=== PATIENT | female | born 1970 | race Caucasian/White ===

== ENCOUNTER 2017-09-02 13:21 | Emergency (ER) | payer OTHER ==
[2017-09-02 14:03] LABS: ABS Basophils 0.2 10^3/ul (0-0.2); ABS Eosinophils 0.3 10^3/ul (0-0.6); ABS Lymphocytes 4.6 10^3/ul (1.0-4.8); ABS Monocytes 0.7 10^3/ul (0-0.8); ABS Neutrophils 6.5 10^3/ul (1.5-7.7); ABS Nucleated RBC 0 10^3/ul; Eosinophil % 2.6 % (0-6); Hematocrit 38 % (35-47); Hemoglobin 13.3 g/dl (12.0-16.0); Lymphocyte % 37.5 % (25-47); Mean Corpuscular HGB Conc 35 g/dl (31-36); Mean Corpuscular Hemoglobin 31 pg (27-31); Mean Corpuscular Volume 90 fL (80-97); Mean Platelet Volume 7 um3 (7.4-10.4); Nucleated Red Blood Cells % 0; Platelet Count 310 10^3/ul (150-450); Red Blood Count 4.25 10^6/ul (4.0-5.4); Red Cell Distribution Width 13 % (10.5-15); White Blood Count 12.3 10^3/ul (3.5-10.8)
--- NOTE | 2017-09-02 14:18 | RAD ---
HISTORY: Palpitation COMPARISONS: July 09, 2011 VIEWS: 1: frontal portable view of the chest at 1:55 PM FINDINGS: LINES AND TUBES: None. CARDIOMEDIASTINAL SILHOUETTE: The cardiomediastinal silhouette is normal for portable technique. PLEURA: The costophrenic angles are sharp. No pleural abnormalities are noted. LUNG PARENCHYMA: The lungs are clear. ABDOMEN: The upper abdomen is clear. There is no subphrenic gas. BONES AND SOFT TISSUES: No bone or soft tissue abnormalities are noted. IMPRESSION: NO ACTIVE CARDIOPULMONARY DISEASE.
[2017-09-02 14:19] LABS: EGFR Non-African American 72.1 (>60)
[2017-09-02 16:21] VITALS: BP 128/82
--- NOTE | 2017-09-03 08:22 | ED ---
Praveen Xie Angela, scribed for Gonzalez Sinha MD on 09/02/17 at 1346 . Palpitations / Dysrhythmia - HPI Summary HPI Summary: This pt is a 47 y/o female presenting to [facility] c/o intermittent palpitations since yesterday. Pt describes palpitations as heart fluttering. She reports she had some palpitations yesterday and this morning at 09:00 her palpitations became more constant. Pt states her episodes of palpitations last a few hours. She additionally notes dizziness and nausea. Denies chest pain, SOB. Pt had similar episodes in January 2017 that lasted 1-2 hours and another episode in April 2017. Pt followed up with a sports health club membership advisors in May 2017. Pt was placed on a 24 hour holter monitor and echo stress test, which all resulted negative. She was told her potassium and magnesium were low, probably secondary to hydrochlorothiazide. - History of Current Complaint Chief Complaint: EDDysrhythmPalp Hx Obtained From: Patient Onset/Duration: Lasting Hours, Still Present Timing: Intermittent Episodes Lasting: - couple of hours Severity Currently: Moderate Character: Fluttering Aggravating: Nothing Alleviating: Nothing Associated Signs & Symptoms: Dizzy, Nausea - Allergy/Home Medications Allergies/Adverse Reactions: Allergies Allergy/AdvReac Type Severity Reaction Status Date / Time MS Iodinated Diagnostic Allergy Rash Verified 06/09/16 10:54 Agents [Iodinated Diagnostic Agents] MS Naproxen [Naproxen] Allergy GI Upset Verified 06/09/16 10:54 MS Sulfa Drugs [Sulfa Drugs] Allergy Rash Verified 06/09/16 10:54 Home Medications: Home Medications Hydrochlorothiazide TAB* [Hydrodiuril TAB*] 25 mg PO DAILY 09/02/17 [History Confirmed 09/02/17] Lansoprazole CAP (NF) [Prevacid CAP (NF)] 15 mg PO DAILY 09/02/17 [History Confirmed 09/02/17] Propranolol LA CAP* [Inderal LA CAP*] 80 mg PO DAILY 09/02/17 [History Confirmed 09/02/17] Verapamil PM(NF) [Verelan PM(NF)] 300 mg PO DAILY 09/02/17 [History Confirmed ] traMADol TAB* [Ultram*] 50 mg PO Q6HR PRN 09/02/17 [History Confirmed 09/02/17] PMH/Surg Hx/FS Hx/Imm Hx Endocrine/Hematology History: Denies: Hx Diabetes, Hx Thyroid Disease Cardiovascular History: Reports: Hx Hypertension Denies: Hx Pacemaker/ICD Respiratory History: Denies: Hx Asthma, Hx Chronic Obstructive Pulmonary Disease (COPD) GI History: Denies: Hx Ulcer History: Denies: Hx Renal Disease Sensory History: Denies: Hx Hearing Aid Neurological History: Reports: Hx Migraine Psychiatric History: Denies: Hx Panic Disorder - Cancer History Hx Chemotherapy: No Hx Radiation Therapy: No - Surgical History Surgery Procedure, Year, and Place: appendectomy 2006 Infectious Disease History: No Infectious Disease History: Reports: Hx of Known/Suspected MRSA - thigh abcess x2 Denies: Hx Clostridium Difficile, Hx Hepatitis, Hx Human Immunodeficiency Virus (HIV), Hx Shingles, Hx Tuberculosis, History Other Infectious Disease, Traveled Outside the [place] in Last 30 Days - Family History Family History: no cardio vascular issues in family lineage - Social History Alcohol Use: Occasionally Alcohol Amount: socially - every other day to daily 1-2 glasses of wine/beer Substance Use Type: Reports: None Smoking Status (MU): Former Smoker Have You Smoked in the Last Year: No Review of Systems Negative: Fever, Chills Positive: Palpitations. Negative: Chest Pain Negative: Shortness Of Breath Positive: Nausea. Negative: Vomiting Neurological: Other - POS: idzziness All Other Systems Reviewed And Are Negative: Yes Physical Exam - Summary Physical Exam Summary: VITAL SIGNS: Reviewed. GENERAL: Patient is a well-developed and nourished female who is lying comfortable in the stretcher. Patient is not in any acute respiratory distress. HEAD AND FACE: No signs of trauma. No ecchymosis, hematomas or skull depressions. No sinus tenderness. EYES: PERRLA, EOMI x 2, No injected conjunctiva, no nystagmus. EARS: Hearing grossly intact. Ear canals and tympanic membranes are within normal limits. MOUTH: Oropharynx within normal limits. NECK: Supple, trachea is midline, no adenopathy, no JVD, no carotid bruit, no c- spine tenderness, neck with full ROM. CHEST: Symmetric, no tenderness at palpation LUNGS: Clear to auscultation bilaterally. No wheezing or crackles. CVS: Regular rate and rhythm, S1 and S2 present, no murmurs or gallops appreciated. ABDOMEN: Soft, non-tender. No signs of distention. No rebound no guarding, and no masses palpated. Bowel sounds are normal. EXTREMITIES: FROM in all major joints, no edema, no cyanosis or clubbing. NEURO: Alert and oriented x 3. No acute neurological deficits. Speech is normal and follows commands. SKIN: Dry and warm Triage Information Reviewed: Yes Vital Signs On Initial Exam: Initial Vitals Temp Pulse Resp BP Pulse Ox 97.5 F 54 18 131/86 97 09/02/17 13:23 09/02/17 13:23 09/02/17 13:23 09/02/17 13:23 09/02/17 13:23 Vital Signs Reviewed: Yes Diagnostics - Vital Signs Vital Signs Temp Pulse Resp BP Pulse Ox 09/02/17 13:23 97.5 F 54 18 131/86 97 - Laboratory Result Diagrams: 09/02/17 13:54 09/02/17 13:54 Lab Statement: Any lab studies that have been ordered have been reviewed, and results considered in the medical decision making process. - Radiology Chest XR Xray Interpretation: No Acute Changes - IMPRESSION: No active cardiopulmonary disease. Dr. Sinha has reviewed this radiology report. Radiology Interpretation Completed By: Radiologist - EKG 14:01 Cardiac Rate: Bradycardia EKG Rhythm: Sinus Bradycardia - at 53 bpm EKG Interpretation: No ST elevation. Normal axis. Course/Dx - Course Assessment/Plan: This pt is a 47 y/o female presenting to [facility] c/o intermittent palpitations since yesterday. Pt describes palpitations as heart fluttering. She reports she had some palpitations yesterday and this morning at 09:00 her palpitations became more constant. Pt states her episodes of palpitations last a few hours. She additionally notes dizziness and nausea. Denies chest pain, SOB. Pt had similar episodes in January 2017 that lasted 1-2 hours and another episode in April 2017. Pt followed up with a sports health club membership advisors in May 2017. Pt was placed on a 24 hour holter monitor and echo stress test , which all resulted negative. She was told her potassium and magnesium were low , probably secondary to hydrochlorothiazide. Test results without any significant abnormalities. Chest XR: No active cardiopulmonary disease. EKG shows no ST elevation. In the ED course the pt is asymptomatic. Therefore pt will be discharged to home with follow up from her PCP. I believe the pt would benefit from a holter monitor. She was instructed to return to the ED if symptoms worsen or if tachycardia reoccurs. Pt is hemodynamically stable, alert and oriented x3. - Diagnoses Provider Diagnoses: Atypical palpitations Discharge - Discharge Plan Condition: Stable Disposition: HOME Patient Education Materials: Heart Palpitations (ED) Referrals: Renetta Marquez MD [Primary Care Provider] - 3 Days Additional Instructions: Please follow up with your primary care provider. RETURN TO THE ED FOR ANY WORSENING SYMPTOMS. The documentation as recorded by the Praveen victor Angela accurately reflects the service I personally performed and the decisions made by me, Gonzalez Sinha MD.
== END 2017-09-02 16:20 | disposition home or self-care (01) ==
LOC: ED 13:21
DX: R00.2 Palpitations (principal); R42 Dizziness and giddiness; R11.0 Nausea; Z87.891 Personal history of nicotine dependence; R07.9 Chest pain, unspecified
CPT/HCPCS: 36415; 71045; 80053; 82550; 82553; 83605; 83735; 83880; 84436; 84443; 84484; 85025; 93005; 99283

== ENCOUNTER 2018-01-13 07:24 | Emergency (ER) | payer BC, OTHER ==
--- NOTE | 2018-01-13 07:38 | UC ---
Headache HPI - HPI Summary HPI Summary: Pt is a 47 y/o F c/o NÚÑEZ starting about 2 days ago and is located right behind the eyes. Pain onset a few days ago and is rated a 10/10, per triage. Assoc Sx: Nausea, dehydration. Denies: Rhinorrhea. Notes a Hx of migraines, however has not had a NÚÑEZ like this in 6-8 months. Took 4 doses of zoleg, 4 more doses and 2 doses of ralpax to no relief. Doctor would treat her and she would feel much better after after receiving. - History Of Current Complaint Stated Complaint: HEADACHE Time Seen by Provider: 01/13/18 07:30 Hx Obtained From: Patient Hx Last Menstrual Period: 04/23/16 Onset/Duration: Lasting Days, Still Present Initially Headache Was: "Worst Headache Ever" Currently Pain Is: Current Pain Scale(0-10)= Pain Intensity: 10 Pain Scale Used: 0-10 Numeric Timing: Constant - Allergies/Home Medications Allergies/Adverse Reactions: Allergies Allergy/AdvReac Type Severity Reaction Status Date / Time naproxen Allergy GI Upset Verified 01/13/18 07:51 Sulfa (Sulfonamide Allergy Rash Verified 01/13/18 07:51 Antibiotics) iodinated diagnostic agents Allergy Rash Uncoded 01/13/18 07:51 Home Medications: Home Medications Eletriptan HBr [Relpax] 40 mg PO SEE INSTRUCTIONS 01/13/18 [History Confirmed ] ZOLMitriptan [Zomig] 5 mg PO 01/13/18 [History] PMH/Surg Hx/FS Hx/Imm Hx Endocrine History: Other - neg: DM Other Endocrine History: . Cardiovascular History: Hypertension, Other - Neg: CAD Other Cardiovascular History: . - Surgical History Surgical History: Yes Surgery Procedure, Year, and Place: appendectomy 2006 - Family History Known Family History: Positive: None Family History: no cardio vascular issues in family lineage - Social History Occupation: Unemployed Lives: With Family Alcohol Use: Occasionally Alcohol Amount: socially - every other day to daily 1-2 glasses of wine/beer Substance Use Type: None Smoking Status (MU): Former Smoker Have You Smoked in the Last Year: No When Did the Patient Quit Smoking/Using Tobacco: 2004 - Immunization History Most Recent Influenza Vaccination: fall 2014 Most Recent Tetanus Shot: up to date Review of Systems Eyes: Photophobia ENT: Other - neg: rhinorrhea Neurological: Headache All Other Systems Reviewed And Are Negative: Yes Physical Exam - Summary Physical Exam Summary: General: well-appearing, mild pain distress Skin: warm, color reflects adequate perfusion, dry Head: normal Eyes: EOMI, KEIRA ENT: normal Neck: supple, nontender Respiratory: CTA, breath sounds present Cardiovascular: RRR Abdomen: soft, nontender Bowel: present Musculoskeletal: normal, strength/ROM intact Neurological: sensory/motor intact, A&O x3 Psychological: affect/mood appropriate Triage Information Reviewed: Yes Headache Course/Dx - Course Course Of Treatment: BP noted and advised to follow up with PCP. PATIENT REPORTS THIS IS TYPICAL FOR HER MIGRAINE HEADCHES. NO FEVER. HER NAPROXSEN ALLERGY IS STOMACH UPSET WHEN TAKING PO. NO PROBLEMS WITH TAKING PO IBUPROFEN. GIVEN TORADOL 60MG IM, BENADRYL 50MG IM AND ZOFRAN 4MG PO. RX ZOFRAN. F/U PMD ; RECHECK SOONER IF WORSE. - Differential Dx/Diagnosis Differential Diagnosis/HQI/PQRI: Other - HTN Provider Diagnoses: MIGRAINE HEADACHE Discharge - Sign-Out/Discharge Documenting (check all that apply): Patient Departure - Discharge Plan Condition: Stable Disposition: HOME Prescriptions: Ondansetron ODT TAB* [Zofran 4 MG Odt TAB*] 4 mg PO Q6H PRN #10 tab.odt PRN Reason: Nausea Patient Education Materials: Migraine Headache (ED) Forms: *Work Release Referrals: Renetta Marquez MD [Primary Care Provider] - Additional Instructions: FOLLOW UP WITH YOUR DOCTOR. GET RECHECKED FOR ANY WORSENING OF YOUR CONDITION; PAIN, FEVER, YOU FEEL ILL OR QUESTIONS OR CONCERNS. Your blood pressure was elevated during todays visit; please follow up with your primary care provider within a week for further evaluation. - Billing Disposition and Condition Condition: STABLE Disposition: Home
[2018-01-13 07:46] VITALS: BP 130/81
[2018-01-13] MEDS ORDERED: Ketorolac INJ* 60 MG/2 ML VIAL IM ONE (07:48)
[2018-01-13] MEDS ORDERED: diPHENhydraMINE IV* 50 MG/ML 1 ml VIAL (BENADRYL) IM ONE (07:49)
[2018-01-13] MEDS ORDERED: Ondansetron ODT TAB* 4 MG PO ONE (07:50)
== END 2018-01-13 08:21 | disposition home or self-care (01) ==
LOC: UCEAST 07:24
DX: G43.909 Migraine, unspecified, not intractable, without status migrainosus (principal); I10 Essential (primary) hypertension; Z88.6 Allergy status to analgesic agent; Z88.2 Allergy status to sulfonamides; Z91.041 Radiographic dye allergy status; Z87.891 Personal history of nicotine dependence
CPT/HCPCS: 96372; 99211; A9270-GY; G0463; J1200; J1885

== ENCOUNTER 2018-01-15 07:41 | Emergency (ER) | payer BC ==
[2018-01-15 07:59] VITALS: BP 135/86
[2018-01-15] MEDS ORDERED: Ketorolac INJ* 60 MG/2 ML VIAL IM ONE (08:56)
--- NOTE | 2018-01-15 09:11 | UC ---
Headache HPI - HPI Summary HPI Summary: PATIENT WITH HISTORY OF MIGRAINE HEADACHES PRESENTS WITH RECURRENT THROBBING FRONTAL HEADACHE, PHOTOPHOBIA, PHONOPHOBIA AND NAUSEA. FEELS LIKE HER MIGRAINE HEADACHES. WAS HERE 2 DAYS AGO WITH THE SAME AND TREATED WITH TORADOL AND BENADRYL. STATES SHE FELT BETTER INITIALLY BUT WHEN THE MEDICINE WORE OFF THE MIGRAINE RETURNED. WAS UNABLE TO GET A TIMELY APPOINTMENT WITH HER PCP. HAS SEEN NEUROLOGY IN THE PAST BUT NOT RECENTLY. IS ON PROPRANOLOL AND FOR OPTIMAL FOR PROPHYLAXIS. RELPAX WAS NOT HELPFUL. - History Of Current Complaint Chief Complaint: UCHeadache Stated Complaint: HEADACHE Time Seen by Provider: 01/15/18 08:26 Hx Obtained From: Patient Hx Last Menstrual Period: last week of november Onset/Duration: Gradual Onset, Lasting Days, Still Present Onset Of Symptoms: Gradual Initially Headache Was: Moderate Currently Pain Is: Severe Pain Intensity: 10 Pain Scale Used: 0-10 Numeric Timing: Constant Character: Dull, Throbbing, Migraine Location of Headache: Frontal Aggravating Factor(s): Bright Lights Allevating Factor(s): Medication Associated Signs And Symptoms: Positive: Nausea. Negative: Vomiting, Fever, Neck Pain, Neck Stiffness, Decreased LOC, Visual Changes - Allergies/Home Medications Allergies/Adverse Reactions: Allergies Allergy/AdvReac Type Severity Reaction Status Date / Time naproxen Allergy GI Upset Verified 01/15/18 07:52 Sulfa (Sulfonamide Allergy Rash Verified 01/15/18 07:52 Antibiotics) iodinated diagnostic agents Allergy Rash Uncoded 01/15/18 07:52 PMH/Surg Hx/FS Hx/Imm Hx - Additional Past Medical History Additional PMH: CHRONIC NECK PAIN Cardiovascular History: Hypertension Neurological History: Migraine - Surgical History Surgical History: Yes Surgery Procedure, Year, and Place: appendectomy 2005 - Family History Known Family History: Positive: None Negative: Hypertension Family History: no cardio vascular issues in family lineage - Social History Alcohol Use: Occasionally Alcohol Amount: socially - every other day to daily 1-2 glasses of wine/beer Substance Use Type: None Smoking Status (MU): Former Smoker Have You Smoked in the Last Year: No When Did the Patient Quit Smoking/Using Tobacco: 2004 - Immunization History Most Recent Influenza Vaccination: fall 2014 Most Recent Tetanus Shot: up to date Review of Systems Constitutional: Negative Eyes: Photophobia Respiratory: Negative Cardiovascular: Negative Gastrointestinal: Nausea Neurological: Headache All Other Systems Reviewed And Are Negative: Yes Physical Exam Triage Information Reviewed: Yes Appearance: Well-Nourished, Pain Distress - MODERATE Vital Signs: Initial Vital Signs Temp 99.1 F 01/15/18 07:53 Pulse 64 01/15/18 07:53 Resp 16 01/15/18 07:53 BP 135/86 01/15/18 07:53 Pulse Ox 99 01/15/18 07:53 Vital Signs Reviewed: Yes Eyes: Positive: Conjunctiva Clear, Other: - PERRL, EOMI ENT: Positive: Hearing grossly normal, Pharynx normal Neck: Positive: Supple, Nontender, No Lymphadenopathy Respiratory Exam: Normal Cardiovascular Exam: Normal Abdomen Description: Positive: Soft Musculoskeletal: Positive: No Edema Neurological: Positive: Alert Psychological: Positive: Age Appropriate Behavior Skin: Negative: rashes Headache Course/Dx - Course Course Of Treatment: PATIENT DECLINES IVF TODAY. SHE ALSO DECLINES CT SCAN TODAY. WILL GIVE ANOTHER DOSE OF TORADOL. ADDITIONAL RX FOR ZOFRAN PROVIDED. ADVISED TO TAKE 400 MG OF RIBOFLAVIN DAILY TO HELP WITH MIGRAINE PROPHYLAXIS IN ADDITION TO HER CURRENT MEDICATIONS. HAVE ALSO RECOMMENDED NEUROLOGY FOLLOW-UP FOR FURTHER EVALUATION OF HER RECURRENT/PERSISTENT MIGRAINE HEADACHE. PATIENT DOES HAVE TRAMADOL AT HOME WHICH SHE USES OCCASIONALLY FOR HER NECK PAIN. SHE STATES SHE DID NOT TAKE THIS FOR HER HEADACHE SHE ONLY TAKES THE MEDICATION FOR THE NECK PAIN FOR WHICH IT IS PRESCRIBED. ADVISED SHE COULD TRY 1-2 TIMES TO SEE IF IT BREAKS THE PAIN CYCLE BUT EMPHASIZED THAT SHE SHOULD NOT START RELYING ON NARCOTIC TYPE PAIN MEDICATIONS FOR HER MIGRAINE HEADACHES. - Differential Dx/Diagnosis Provider Diagnoses: MIGRAINE NÚÑEZ Discharge - Sign-Out/Discharge Documenting (check all that apply): Patient Departure - Discharge Plan Condition: Stable Disposition: HOME Prescriptions: Ondansetron ODT TAB* [Zofran Odt TAB*] 4 mg PO Q6H PRN #20 tab.odt PRN Reason: Nausea/Vomiting Patient Education Materials: Migraine Headache (ED) Forms: *Work Release Referrals: Renetta Marquez MD [Primary Care Provider] - 1 Week Hussein Fortune MD [Medical Doctor] - 1 Week Additional Instructions: YOU RECEIVED ANOTHER 60 MG TORADOL IM TODAY. OKAY TO USE YOUR TRAMADOL 1 OR 2 TIMES FOR THE HEADACHE TO SEE IF IT CAN BREAK THE PAIN CYCLE. I WOULD NOT START TAKING THIS MEDICATION REGULARLY FOR HEADACHE THOUGH. CONSIDER TAKING 400 MG OF RIBOFLAVIN DAILY IN ADDITION TO YOUR OTHER DAILY PROPHYLACTIC MEDICATIONS THERE IS SOME EVIDENCE THAT THIS MAY HELP PREVENT MIGRAINES. FOLLOW-UP WITH NEUROLOGY FOR FURTHER EVALUATION OF YOUR RECURRENT MIGRAINE HEADACHES. YOU MAY BENEFIT FROM A CT SCAN TO ENSURE NO OTHER UNDERLYING CAUSE FOR HEADACHE. - Billing Disposition and Condition Condition: STABLE Disposition: Home
== END 2018-01-15 09:19 | disposition home or self-care (01) ==
LOC: UCEAST 07:41
DX: G43.909 Migraine, unspecified, not intractable, without status migrainosus (principal); G89.29 Other chronic pain; M54.2 Cervicalgia; I10 Essential (primary) hypertension; Z88.6 Allergy status to analgesic agent; Z88.2 Allergy status to sulfonamides; Z91.041 Radiographic dye allergy status; Z87.891 Personal history of nicotine dependence
CPT/HCPCS: 96372; 99212; G0463; J1885

== ENCOUNTER 2019-10-14 22:26 | Emergency (ER) | payer OTHER ==
--- OUTSIDE RECORDS SUMMARY | 2019-10-14 22:39 | XMS REPORT | Continuity of Care Document ---
:1970 External Reference #:[id number] Author Name Renetta Marquez M.D. Address [address] [place] [address] Care Team Providers Name Role Phone Renetta Marquez M.D. - Family Medicine Care Team Information Security Risk Analyst Problems Active Problems Provider Date Essential hypertension Renetta Marquez M.D. Onset: 02/22/2016 Migraine with typical aura Renetta Marquez M.D. Onset: 02/22/2016 Brachial neuritis Renetta Marquez M.D. Onset: 02/18/2017 Obesity Renetta Marquez M.D. Onset: 02/18/2017 Chronic pain syndrome Renetta Marquez M.D. Onset: 09/27/2018 Neck pain Renetta Marquez M.D. Onset: 09/27/2018 Hypothyroidism Renetta Marquez M.D. Onset: 04/04/2019 Impaired fasting glycemia Renetta Marquez M.D. Onset: 04/04/2019 Leukocytosis Renetta Marquez M.D. Onset: 04/18/2019 Obstructive sleep apnea syndrome Renetta Marquez M.D. Onset: 07/20/2019 Cyst of right ovary Renetta Marquez M.D. Onset: 10/11/2019 Social History Type Date Description Comments Sex Unknown Tobacco Use Start: Unknown End: Former Cigarette Smoker Unknown ETOH Use Occasional Tobacco Use Start: Unknown End: Patient is a former smoker <1ppd, 16-30s Smoking Status Reviewed: 04/04/19 Patient is a former smoker <1ppd, 16-30s Exercise Type/Frequency Exercises sporadically Allergies, Adverse Reactions, Alerts Active Allergies Reaction Severity Comments Date Sulfa Antibiotics facial itching, hives 02/06/2016 Aleve vomiting 03/19/2016 Medications Active Medications SIG Qnty Indications Ordering Date Provider Valtrex 2000 mg by 14tabs Renetta Marquez, 10/11/2019 500mg Tablets mouth every 12 M.D. hours x1 day; start: brenda after symptom onset Naratriptan HCL 1 tab by mouth 14tabs Renetta [place], 04/12/2019 2.5mg Tablets at onset of M.D. migraine, repeat dose after 4hours if needed, MDD 2 Propranolol HCL 1 tab by mouth 14tabs Renetta [place], 04/04/2019 40mg Tablets every day x 1 M.D. week then 1/2 tab x 1 week then stop Levothyroxine Sodium 1 by mouth 90tabs Kim C. 09/30/2018 50mcg every day [facility] Tablets Ondansetron 1 tab by mouth 30tabs Renetta Marquez, 09/27/2018 4mg Tablets Dispers every 6 hours M.D. as needed Potassium Chloride Leelee ER take 1 tablet 90tabs Renetta Marquez, 04/03/2018 20Meq by mouth once M.D. Tablets ER daily Lansoprazole 1 by mouth [facility] Renetta Marquez, 10/03/[address] every day M.D. Verapamil HCL ER take 1 capsule [facility] Renetta Marquez, 10/03/2016 300mg Caps ER by mouth every M.D. 24HR evening Hydrochlorothiazide Take 1 Tablet 90tabs 0 Renetta Marquez, 02/06/2016 25mg Tablets By Mouth Once M.D. Daily Multivitamin Adult 1 by mouth Unknown Tablets daily. Tramadol HCL 1 by mouth 90tabs Renetta Marquez, 50mg Tablets every 8 hours M.D. as needed Cyclobenzaprine HCL take one Unknown 10mg Tablets tablet by mouth twice a day as needed pain Medications Administered in Office Medication SIG Qnty Indications Ordering Provider Date TB Intradermal Test Renetta Marquez M.D. 03/03/2017 Injection TB Intradermal Test Renetta Marquez M.D. 02/18/2017 Injection Immunizations CPT Code Status Date Vaccine Lot # [id number] Given 04/04/2019 Influenza Vac, Quadrivalent, Slit Virus, Im [id number] Given 03/31/2018 Influenza Vac, Quadrivalent, Slit Virus, Im [id number] Given 03/10/2017 MMR Virus Immunization [id number] Given 02/18/2017 Tdap Tetanus, W Pertussis [id number] Vital Signs Date Vital Result Comment 10/11/2019 9:05am BP Systolic 121 mmHg BP Diastolic 85 mmHg Heart Rate 72 /min Height 66 inches 5'6" measured 02/18/17 Weight 240.00 lb BMI (Body Mass Index) 38.7 kg/m2 04/04/2019 5:42pm BP Systolic 122 mmHg BP Diastolic 64 mmHg Heart Rate 68 /min Body Temperature 98.4 F Respiratory Rate 16 /min Height 66 inches 5'6" measured 02/18/17 Weight 262.00 lb BMI (Body Mass Index) 42.3 kg/m2 Results Test Acquired Date Facility Test Result H/L Range Note Comprehensive 04/14/2019 [facility]) Sodium 138 mEq/L 134-149 Metabolic Prof Potassium 3.3 mEq/L Low 3.6-5.5 1 Chloride 101 mEq/L 94-112 Carbon Dioxide 25 mEq/L 21-32 Glucose 125 mg/dL High 70-105 2 BUN 13 mg/dL 6-26 Creatinine 0.8 mg/dL 0.6-1.4 BUN/Creat Ratio 16.3 CALC 8.0-36.0 Calcium 8.8 mg/dL 8.6-10.2 Total Protein 6.9 g/dL 6.4-8.3 Albumin 4.5 g/dL 3.8-5.5 Globulin 2.4 g/dL 2.0-4.8 A/G Ratio 1.9 CALC 0.6-2.3 Alk. Phosphatase 65 U/L 30-110 Alt (SGPT) 20 U/L 7-35 Ast (Sgot) 18 U/L 5-34 Total Bilirubin 0.9 mg/dL 0.2-1.3 GFR Non- >60 ml/min/1.73m^ >=60 GFR >60 ml/min/1.73m^ >=60 Lipid Profile 04/14/2019 [facility]) Cholesterol 155 mg/dL 120- 200 Triglycerides 196 mg/dL 30-200 HDL Cholesterol 41 mg/dL 30-85 LDL (Calculated) 75 CALC 0-129 VLDL Cholesterol 39 mg/dL 0-50 HDL Risk Factor 3.8 CALC 0.0-4.4 Laboratory test finding 04/14/2019 [facility]ma) TSH 5.73 mIU/L 0.50-6.00 Free T4 1.10 ng/dL 0.75-1.54 CBC Electronic a 04/14/2019 [facility](a) WBC 11.0 x10^3/UL High 4.0-10.0 3 RBC 4.70 x10^6/UL 3.93-6.00 HGB 14.5 g/dL 12.0-17.0 HCT 42 % 35-50 MCV 89.1 fL 80.0-95.0 MCH 30.9 pg 25.6-32.2 MCHC 34.6 g/dL 32.2-36.0 RDW-CV 12.7 % 11.6-14.4 PLT 301 x10^3/UL 163-400 MPV 9.6 fL 9.4-12.4 Julissa# 6.63 x10^3/UL High 1.56-6.13 Lymph# 3.34 x10^3/UL 1.18-3.74 [place]# 0.64 x10^3/UL 0.24-0.82 Eos # 0.3 x10^3/UL 0.0-0.5 Baso # 0.05 x10^3/UL 0.01-0.08 Julissa% 60.4 % 34.0-70.0 Lymph % 30.4 % 20.0-52.0 [place]% 5.8 % 5.0-12.0 Eos% 2.7 % 0.7-7.0 Baso% 0.5 % 0.1-1.2 Ua - Non Micro (a) 04/14/2019 [facility] Appearance CLEAR (607)- - Color YELLOW Glucose, Urine (Fma/CMC/CTX) NEG Bilirubin NEG Ketones TRACE SP Grav 1.025 Blood NEG PH 6.0 Protein NEG Urobil 0.2 Nitrite NEG Leukocytes (a/CMC/[facility]) NEG Laboratory test 04/14/2019 [facility] Hemoglobin A1c 4.8 % % 4.1- 5.7 finding (607)- - (a) 1 RESULTS VERIFIED BY REPEAT ANALYSIS 2 RESULTS VERIFIED BY REPEAT ANALYSIS 3 consistent w/ previous results Procedures Date Code Description Status 05/04/2019 57830296 Mammogram Completed 07/26/2018 [id number] Colonoscopy Completed 04/02/2018 [id number] Mammogram Completed 12/31/2016 [id number] Mammogram Completed Medical Devices Description No Information Available Encounters Type Date Location Provider Dx Diagnosis Office Visit 10/11/2019 [facility] Renetta Marquez R73.01 Impaired fasting 9:00a M.D. glucose I10 Essential (primary) hypertension E03.9 Hypothyroidism, unspecified D72.829 Elevated white blood cell count, unspecified N83.201 Unspecified ovarian cyst, right side G47.33 Obstructive sleep apnea (adult) (pediatric) M54.2 Cervicalgia Assessments Date Code Description Provider 10/11/2019 R73.01 Impaired fasting glucose Renetta Marquez M.D. 10/11/2019 I10 Essential (primary) hypertension Renetta Marquez M.D. 10/11/2019 E03.9 Hypothyroidism, unspecified Renetta Marquez M.D. 10/11/2019 D72.829 Elevated white blood cell count, unspecified Renetta Marquez M.D. 10/11/2019 N83.201 Unspecified ovarian cyst, right side Renetta Marquez M.D. 10/11/2019 G47.33 Obstructive sleep apnea (adult) (pediatric) Renetta Marquez M.D. 10/11/2019 M54.2 Cervicalgia Renetta Marquez M.D. 04/14/2019 Z00.01 Encounter for general adult medical examination Renetta Marquez M.D. with abnormal findings 04/14/2019 R73.01 Impaired fasting glucose Renetta Marquez M.D. 04/14/2019 I10 Essential (primary) hypertension Renetta Marquez M.D. 04/14/2019 E03.9 Hypothyroidism, unspecified Renetta Marquez M.D. Plan of Treatment 10/11/2019 - Renetta Marquez M.D.R73.01 Impaired fasting glucoseNew Labs:Comp Metabolic-ALL [facility], Ordered: 10/11/19Lipid Panel-[facility], Ordered: 10/11/19Hemoglobin A1c ([facility]ma), Ordered: 10/11/19Microalb, Random ([facility]ma/ [facility]/CTX), Ordered: 10/11/19CBC Electronic-ALL [facility], Ordered: 10/11/19TSH (Fma/[facility]), Ordered: 10/11/19Free T4 (Fma/[facility]), Ordered: 10/11/19Ua - Micro ([facility]ma), Ordered: 10/11/19Comments:Sugar/glucose level was high. Consider meeting with a rn flight to help with food choices to preventdiabetes. Foods to avoid/limit include simple carbohydrates, which are processed, such as sugar, pasta, white bread, flour, and cookies, pastries, sweetened beverages and alcohol. Low carbohydrate diet, low glycemic index diet or the Mediterranean diet can help you reduce sugar levels. Routine cardiovascular exercise of at least 30 minutes a day is also recommended. Recommend rechecking your fasting( no food for 8 hours prior to test) sugar level in 3-6 months with lifestyle changes in effect. A fasting blood sugar level from 100 to 125 mg/dL is considered prediabetes. If it's 126 mg/dL or higher on two separate tests, you have diabetes. A1c> 6.5 is also diagnostic of diabetes.Follow up:1-2 mo fasting labs, 6 mo cpeI10 Essential (primary) hypertensionNew Labs:Comp Metabolic-ALL [facility], Ordered: 10/11/19Lipid Panel-[facility], Ordered: 10/11/19CB Electronic-ALL [facility], Ordered: 10/11/19Comments:The patient will continue to monitor blood pressure and let me know the blood pressure results if there are readings persistently above 140/90. Goal blood pressure is less than 130/80. Recommend low salt/cardiac diet such as the Mediterranean diet and routine exercise at least 30 minutes a day.E03.9 Hypothyroidism, unspecifiedNew Labs:TSH (Fma/[facility]), Ordered: Free T4 ([facility]ma/[facility]), Ordered: 10/11/19Comments:check labs, stable on lbwuwjdldjB78.829 Elevated white blood cell count, unspecifiedComments:is still high discussed siokrncmkbL75.201 Unspecified ovarian cyst, right sideComments: seeing gynG47.33 Obstructive sleep apnea (adult) (pediatric)Comments:wears CPAP nightly with improvement of nukbvnwcA91.2 CervicalgiaComments:on tramadol and flexerilAllNew Medication:Valtrex 500 mg - 2000 mg by mouth every 12 hours x1 day; start: brenda after symptom onsetComments:Medication Management Patient Understands medications she's taking? Yes No Are there Barriers to Adherence? Yes No Has the patient been asked about herbal supplements and therapies, and OTC meds? Yes No Functional Status Description No Information Available Mental Status Description No Information Available Referrals Description No Information Available
--- OUTSIDE RECORDS SUMMARY | 2019-10-14 22:39 | XMS REPORT | Continuity of Care Document ---
:1970 External Reference #:[id number] Author Name Basia Luna NP (transmitted by agent of provider Rosemarie Triplett) Address [address], [address] [place] [address] Care Team Providers Name Role Phone Renetta Marquez MD - Family Care Team Information Manager Cardiac [phone] Medicine Problems Active Problems Provider Date Essential hypertension Gonzalez Law M.D. Onset: 12/23/2015 Neck pain Hussein Escalera M.D. Onset: 05/19/2016 Degeneration of cervical intervertebral Hussein Escalera M.D. Onset: 07/02/2016 disc Displacement of cervical intervertebral Hussein Escalera M.D. Onset: 08/11/2016 disc History of polyp of colon Jayda Solorzano NP Onset: 06/03/2018 Social History Type Date Description Comments Sex Unknown Cigarette Use Quit 15 Years Ago ETOH Use Drinks Alcoholic Beverages Occasionally Tobacco Use Start: Unknown End: Patient is a former smoker Unknown Recreational Drug Use Denies Drug Use Smoking Status Reviewed: 09/08/19 Patient is a former smoker Exercise Type/Frequency Does not exercise Allergies, Adverse Reactions, Alerts Active Allergies Reaction Severity Comments Date Sulfa Antibiotics 12/10/2015 Chloraprep 09/08/2019 Medications Active Medications SIG Qnty Indications Ordering Date Provider Tramadol HCL 1 by mouth 90tabs M50.30 Hussein Escalera 07/02/2016 50mg Tablets every 6 hours M.D. as needed pain Cyclobenzaprine HCL 1 by mouth 60tabs Hussein Escalera 05/19/2016 10mg Tablets twice a day M.D. as needed spasm Prevacid 1 tab by 90caps Gonzalez Gray 15mg Capsules DR kristin Law M.D. Verapamil HCL ER one by mouth 90capelaine Roth E. 300mg Caps ER 24HR every day Sharmin Law Valtrex 1 by mouth Unknown 500mg Tablets twice aday Daily Vitamin Unknown Tablets Promethazine HCL one tablet Unknown 25mg Tablets every 8 hours as needed for nausea Hydrochlorothiazide 1 by mouth Unknown 25mg Tablets every day Potassium Chloride ER 2 by mouth Unknown 10Meq every day Capsules ER Levothyroxine Sodium 1 by mouth Unknown 50mcg Tablets every day Immunizations Description No Information Available Vital Signs Date Vital Result Comment 09/08/2019 1:54pm Height 66 inches 5'6" Weight 248.00 lb Heart Rate 96 /min BP Systolic Sitting 140 mmHg BP Diastolic Sitting 98 mmHg O2 % BldC Oximetry 97 % BMI (Body Mass Index) 40.0 kg/m2 07/20/2019 8:46am Height 66 inches 5'6" Weight 246.00 lb Heart Rate 84 /min BP Systolic 124 mmHg BP Diastolic 74 mmHg O2 % BldC Oximetry 98 % BMI (Body Mass Index) 39.7 kg/m2 Results Description No Information Available Procedures Date Code Description Status 07/01/2019 82085 Polysomnography Sleep Staging 4+ Parameters Completed 05/04/2019 [id number] Mammogram Completed 07/26/2018 [id number] Colonoscopy Completed 12/31/2016 [id number] Mammogram Completed 06/27/2011 [id number] Mammogram Completed 07/28/2005 [id number] Colonoscopy Completed Medical Devices Description No Information Available Encounters Type Date Location Provider Dx Diagnosis Office Visit 09/08/2019 Pulmonology Becky Flor G47.33 Obstructive sleep 2:00p [facility] apnea (adult) [facility] (pediatric) Office Visit 07/20/2019 Pulmonology Becky Flor G47.33 Obstructive sleep 9:00a [facility] apnea (adult) [facility] (pediatric) R53.83 Other fatigue Office Visit 06/08/2019 8:00a [facility] Rosalinda Gage, R06.83 [facility] Techn[facility] R53.83 Other fatigue Office Visit 05/27/2019 11:30a [facility] Emmanuel Rios, N83.201 [facility] ovarian cyst, right side D25.1 Intramural leiomyoma of uterus Z80.41 Family history of malignant neoplasm of ovary Assessments Date Code Description Provider 09/08/2019 G47.33 Obstructive sleep apnea (adult) (pediatric) Basia Luna NP 07/20/2019 G47.33 Obstructive sleep apnea (adult) (pediatric) Basia Luna NP 07/20/2019 R53.83 Other fatigue Basia Luna NP 07/01/2019 G47.33 Obstructive sleep apnea (adult) (pediatric) Rosalinda Gage MD 06/08/2019 R06.83 Snoring Rosalinda Gage MD 06/08/2019 R53.83 Other fatigue Rosalinda Gage MD 05/27/2019 N83.201 Unspecified ovarian cyst, right side Emmanuel Rios MD 05/27/2019 D25.1 Intramural leiomyoma of uterus Emmanuel Rios MD 05/27/2019 Z80.41 Family history of malignant neoplasm of Dvaretha Rios MD ovary Plan of Treatment Future Appointment(s):03/09/2020 3:00 pm - Basia Luna NP at [facility]12/12/2019 4:00 pm - Emmanuel Rios MD at [facility]09/08/2019 - Basia Luna NPG47.33 Obstructive sleep apnea (adult) (pediatric)Follow up:6 monthsRecommendations: Keep up the good work with your CPAP! If you have difficulty with your equipment, or need to replace your mask or hoses, please contact your homecare agency, [facility] . If you have any further questions, please call the [facility] at [phone] If you have anysleepiness while driving you MUST avoid operating a vehicle or machinery. If you feel tired while driving pull over machine operator and take a nap or switch drivers. If you know you are sleepy and need to go somewhere, arrange for a ride or use public transportation. It is very important to not risk your safety or the safety of others. Functional Status Description No Information Available Mental Status Description No Information Available Referrals Description No Information Available
--- OUTSIDE RECORDS SUMMARY | 2019-10-14 22:39 | XMS REPORT | Continuity of Care Document ---
:1970 External Reference #:[id number] Author Name Basia Luna NP Address [address], [address] [place] [address] Care Team Providers Name Role Phone Renetta Marquez MD - Family Care Team Information Remittance Clerk [phone] Medicine Problems Active Problems Provider Date Essential [...] spasm Prevacid 1 tab by 90caps Gonzalez EErnie 15mg Capsules DR kristin Law M.D. Verapamil HCL ER one by mouth 90caps Gonzalez EErnie 300mg Caps ER 24HR every day Sharmin [...] Available Procedures Date Code Description Status 07/01/2019 74481 Polysomnography Sleep Staging 4+ Parameters Completed 05/04/2019 [id number] Mammogram Completed 07/26/2018 [id number] Colonoscopy Completed 12/31/2016 [id number] Mammogram Completed 06/27/2011 [id number] Mammogram Completed 07/28/2005 [id number] Colonoscopy Completed Medical Devices Description No Information Available Encounters Type Date Location Provider Dx Diagnosis Office Visit 09/08/2019 Pulmonology Becky Flor G47.33 Obstructive sleep 2:00p [facility] apnea (adult) [facility] (pediatric) Office Visit 07/20/2019 Pulmonology Becky Folr G47.33 Obstructive sleep 9:00a [facility] apnea (adult) [facility] (pediatric) R53.83 Other fatigue Office Visit 06/08/2019 8:00a [facility] Rosalinda Gage, R06.83 [facility] JOHN R53.83 Other fatigue Office Visit 05/27/2019 11:30a [facility], N83.201 [facility] ovarian cyst, right side D25.1 Intramural leiomyoma [...] MD 05/27/2019 D25.1 Intramural leiomyoma of uterus Emmaunel Rios MD 05/27/2019 Z80.41 Family history of malignant neoplasm of Emmanuel Rios MD ovary Plan of Treatment Future Appointment(s):12/12/2019 4:00 pm - Emmanuel [facility] at [facility]09/08/2019 - Basia Luna NPG47.33 Obstructive sleep apnea ( adult) (pediatric)New Orders:[facility], Ordered: 09/08/19Follow up:6 monthsRecommendations:Keep up the good work with your CPAP! If you have difficulty with your equipment, or need to replace your mask or hoses, please contact your homecare agency, [facility] . If you have any further questions, please call the Sleep Disorder Center at [phone] If you have anysleepiness while driving you MUST avoid operating a vehicle or machinery. If you feel tired while driving ladle puller and take a nap or switch drivers. [...]
--- OUTSIDE RECORDS SUMMARY | 2019-10-14 22:39 | XMS REPORT | Continuity of Care Document ---
:1970 External Reference #:[id number] Author Name Renetta Marquez M.D. (transmitted by agent of provider Josephine Muñoz) Address [address] [place] [address] Care Team Providers Name Role Phone Renetta Marquez M.D. - Family Medicine Care Team Information Optical Engineering Manager Problems Active Problems Provider Date Essential hypertension [...] HCL 1 tab by mouth 14tabs Renetta Marquez, 04/12/2019 2.5mg Tablets at onset of M.D. migraine, repeat dose after 4hours if needed, MDD 2 Propranolol HCL 1 tab by mouth 14tabs Renetta Marquez, 04/04/2019 40mg Tablets every day x 1 M.D. week then 1/2 tab x 1 week then stop Levothyroxine Sodium 1 by mouth 90tabs Kim Jenkins 09/30/2018 50mcg every day [facility] Tablets Ondansetron 1 tab by mouth 30tabs Renetta Marquez, 09/27/2018 4mg Tablets Dispers every 6 hours M.D. as needed Potassium Chloride Leelee ER take 1 tablet 90tabs Renetta Marquez, 04/03/2018 20Meq by mouth once M.D. Tablets ER daily Lansoprazole 1 by [facility] Renetta Marquez, 10/03/[address] every day M.D. Verapamil HCL ER take 1 capsule [facility] Renetta Marquez, 10/03/2016 300mg Caps ER by mouth every M.D. 24HR evening Hydrochlorothiazide Take 1 Tablet 90tabs I10 Renetta Marquez, 02/06/2016 25mg Tablets By Mouth [...] CPT Code Status Date Vaccine Lot # [id number] Given 04/04/2019 Influenza Vac, Quadrivalent, Slit Virus, Im [id number] Given 03/31/2018 Influenza Vac, Quadrivalent, Slit Virus, Im [id number] Given 03/10/2017 MMR Virus Immunization [id number] Given 02/18/2017 Tdap Tetanus, W Pertussis [id number] [...] Result H/L Range Note Comprehensive 04/14/2019 [facility](fma) Sodium 138 mEq/L 134-149 Metabolic Prof Potassium [...] GFR >60 ml/min/1.73m^ >=60 Lipid Profile 04/14/2019 [facility](fma) Cholesterol 155 mg/dL 120- 200 Triglycerides 196 mg/dL 30-200 HDL Cholesterol 41 mg/dL 30-85 LDL (Calculated) 75 CALC 0-129 VLDL Cholesterol 39 mg/dL 0-50 HDL Risk Factor 3.8 CALC 0.0-4.4 Laboratory test finding 04/14/2019 [facility](fma) TSH 5.73 mIU/L 0.50-6.00 Free T4 1.10 ng/dL 0.75-1.54 CBC Electronic a 04/14/2019 [facility]) WBC 11.0 x10^3/UL High 4.0-10.0 3 RBC 4.70 x10^6/UL 3.93-6.00 HGB 14.5 g/dL 12.0-17.0 HCT 42 % 35-50 MCV 89.1 fL 80.0-95.0 MCH 30.9 pg 25.6-32.2 MCHC 34.6 g/dL 32.2-36.0 RDW-CV 12.7 % 11.6-14.4 PLT 301 x10^3/UL 163-400 MPV 9.6 fL 9.4-12.4 Julissa# 6.63 x10^3/UL High 1.56-6.13 Lymph# 3.34 x10^3/UL 1.18-3.74 [place]# 0.64 x10^3/UL 0.24-0.82 Eos # 0.3 x10^3/UL 0.0-0.5 Baso # 0.05 x10^3/UL 0.01-0.08 Julissa% 60.4 % 34.0-70.0 Lymph % 30.4 % 20.0-52.0 [place]% 5.8 % 5.0-12.0 Eos% 2.7 % 0.7-7.0 Baso% 0.5 % 0.1-1.2 Ua - Non Micro ([facility]) 04/14/2019 [facility] Appearance CLEAR (607)- - Color YELLOW Glucose, Urine (Fma/[facility]/CTX) NEG Bilirubin NEG Ketones TRACE SP Grav 1.025 Blood NEG PH 6.0 Protein NEG Urobil 0.2 Nitrite NEG Leukocytes (a/[facility]) NEG Laboratory test 04/14/2019 [facility] Hemoglobin A1c 4.8 % % 4.1- 5.7 finding (607)- - (a) 1 RESULTS VERIFIED BY REPEAT ANALYSIS 2 RESULTS VERIFIED BY REPEAT ANALYSIS 3 consistent w/ previous results Procedures Date Code Description Status 05/04/2019 [id number] Mammogram Completed 07/26/2018 [id number] Colonoscopy Completed 04/02/2018 [id number] Mammogram Completed 12/31/2016 [id number] Mammogram Completed Medical Devices Description No Information Available Encounters Type Date Location Provider Dx Diagnosis Office Visit 10/11[facility] Renetta Marquez R73.01 Impaired fasting 9:00a [...] level was high. Consider meeting with a electric drill operator to help with food choices to preventdiabetes. [...] T4 ([facility]), Ordered: 10/11/19Comments:check labs, stable on faldyiudufE97.829 Elevated white blood cell count, unspecifiedComments:is still high discussed usjwxxcfkfS45.201 Unspecified ovarian cyst, right sideComments: seeing gynG47.33 Obstructive sleep apnea (adult) (pediatric)Comments:wears CPAP nightly with improvement of llsvhkcuE04.2 CervicalgiaComments:on tramadol and flexerilAllNew Medication:Valtrex 500 mg [...]
--- NOTE | 2019-10-14 23:37 | ED ---
GI/ HPI - HPI Summary HPI Summary: Patient complains of no bowel movement for one week with some mild diffuse abdominal discomfort. Patient states she has been active, also taking tramadol for migraine headache. Some associated nausea. States she has taken suppositories 5 with no relief. Denies fever, cough, sore throat, CP, SOB, V/D , change in urine. Medical history is migraines, HTN. - History of Current Complaint Chief Complaint: EDConstipation Time Seen by Provider: 10/14/19 23:07 Stated Complaint: GENERAL PER PT Hx Obtained From: Patient Hx Last Menstrual Period: last week of november Onset/Duration: Started Days Ago Timing: Constant Severity: Mild Current Severity: Mild Pain Intensity: 1 Location of Pain: Diffuse Pain Characteristics: Dull Associated Signs and Symptoms: Positive: Nausea - Allergy/Home Medications Allergies/Adverse Reactions: Allergies Allergy/AdvReac Type Severity Reaction Status Date / Time chlorhexidine Allergy Rash Verified 10/14/19 22:33 naproxen Allergy GI Upset Verified 10/14/19 22:33 Sulfa (Sulfonamide Allergy Rash Verified 10/14/19 22:33 Antibiotics) iodinated diagnostic agents Allergy Rash Uncoded 10/14/19 22:33 Home Medications: Home Medications Ibuprofen TAB* [Motrin TAB* 800 MG] 800 mg PO Q8H PRN #40 tab 05/06/16 [Rx Confirmed 07/26/18] Hydrochlorothiazide TAB* [Hydrodiuril TAB*] 25 mg PO DAILY 09/02/17 [History Confirmed 07/14/18] Lansoprazole CAP (NF) [Prevacid CAP (NF)] 15 mg PO DAILY 09/02/17 [History Confirmed 07/14/18] Propranolol LA CAP* [Inderal LA CAP*] 80 mg PO DAILY 09/02/17 [History Confirmed 07/14/18] Verapamil PM(NF) [Verelan PM(NF)] 300 mg PO DAILY 09/02/17 [History Confirmed ] traMADol TAB* [Ultram*] 50 mg PO Q6HR PRN 09/02/17 [History Confirmed 07/14/18] Eletriptan HBr [Relpax] 40 mg PO .AT ONSET NÚÑEZ PRN MDD may repeat x1 after 2hrs 01/13/18 [History Confirmed 07/14/18] ZOLMitriptan [Zomig] 5 mg PO .AT ONSET OF NÚÑEZ PRN MDD 2, no more than 2x/wk 01/13 [History Confirmed 07/14/18] Cyclobenzaprine TAB* [Flexeril 10 MG TAB*] 10 mg PO BID PRN 06/04/18 [History Confirmed 07/14/18] Multivitamins/Minerals TAB* [Theragran/minerals TAB*] 1 tab PO DAILY 06/04/18 [ History Confirmed 07/14/18] ValACYclovir (*) [Valtrex 500 mg (*)] 500 mg PO BID PRN 06/04/18 [History Confirmed 07/14/18] Ondansetron TAB* [Zofran 4 MG Tab*] 4 mg PO Q6H PRN 07/26/18 [History Confirmed 07/26/18] PMH/Surg Hx/FS Hx/Imm Hx Endocrine/Hematology History: Denies: Hx Diabetes, Hx Thyroid Disease Cardiovascular History: Reports: Hx Hypertension Denies: Hx Pacemaker/ICD Respiratory History: Denies: Hx Asthma, Hx Chronic Obstructive Pulmonary Disease (COPD) GI History: Denies: Hx Ulcer History: Denies: Hx Renal Disease Sensory History: Denies: Hx Hearing Aid Neurological History: Reports: Hx Migraine Psychiatric History: Denies: Hx Panic Disorder - Cancer History Hx Chemotherapy: No Hx Radiation Therapy: No - Surgical History Surgery Procedure, Year, and Place: appendectomy 2005 Infectious Disease History: Yes Infectious Disease History: Reports: Hx of Known/Suspected MRSA - thigh abcess x2 Denies: Hx Clostridium Difficile, Hx Hepatitis, Hx Human Immunodeficiency Virus (HIV), Hx Shingles, Hx Tuberculosis, History Other Infectious Disease, Traveled Outside the [place] in Last 30 Days - Family History Known Family History: Positive: None Negative: Hypertension Family History: no cardio vascular issues in family lineage - Social History Alcohol Use: Occasionally Alcohol Amount: socially - every other day to daily 1-2 glasses of wine/beer Substance Use Type: Reports: None Smoking Status (MU): Former Smoker Have You Smoked in the Last Year: No Review of Systems Constitutional: Negative Eyes: Negative ENT: Negative Cardiovascular: Negative Respiratory: Negative Positive: Nausea Genitourinary: Negative Musculoskeletal: Negative Skin: Negative Neurological/Mental Status: Negative Psychological: Normal All Other Systems Reviewed And Are Negative: Yes Physical Exam Triage Information Reviewed: Yes Vital Signs On Initial Exam: Initial Vitals Temp Pulse Resp BP Pulse Ox 98.2 F 115 18 151/106 98 10/14/19 22:28 10/14/19 22:28 10/14/19 22:28 10/14/19 22:28 10/14/19 22:28 Vital Signs Reviewed: Yes Appearance: Positive: Well-Appearing Skin: Positive: Warm Head/Face: Positive: Normal Head/Face Inspection Eyes: Positive: Normal Neck: Positive: Supple Respiratory/Lung Sounds: Positive: Clear to Auscultation Cardiovascular: Positive: Normal Abdomen Description: Positive: Other: - Mildly tender diffusely Musculoskeletal: Positive: Normal Neurological: Positive: Normal Psychiatric: Positive: Normal AVPU Assessment: Alert - Pamela Coma Scale Best Eye Response: 4 - Spontaneous Best Motor Response: 6 - Obeys Commands Best Verbal Response: 5 - Oriented Coma Scale Total: 15 Procedures - Sedation Patient Received Moderate/Deep Sedation with Procedure: No Diagnostics - Vital Signs Vital Signs Temp Pulse Resp BP Pulse Ox 10/14/19 22:28 98.2 F 115 18 151/106 98 - Laboratory Lab Statement: Any lab studies that have been ordered have been reviewed, and results considered in the medical decision making process. GIGU Course/Dx - Course Course Of Treatment: Patient complains of no bowel movement for one week with some mild diffuse abdominal discomfort. Patient states she has been active, also taking tramadol for migraine headache. Some associated nausea. States she has taken suppositories 5 with no relief. Denies fever, cough, sore throat , CP, SOB, V/D, change in urine. Medical history is migraines, HTN. Vital signs within normal limits. Patient produced large amount of stool after soapsuds enema. - Diagnoses Provider Diagnoses: Constipation - Critical Care Time Critical Care Statement: Critical care time is provided exclusive of any time spent performing procedures. Discharge ED - Sign-Out/Discharge Documenting (check all that apply): Patient Departure - Discharge Plan Condition: Stable Disposition: HOME Patient Education Materials: Constipation (ED) Referrals: Renetta Marquez MD [Primary Care Provider] - Additional Instructions: Try magnesium citrate 150 mL's if still unable to produce stool. Take another 150 mL's if that does not work. If unable to produce stool after 300ml magnesium citrate return to the ED. Magnesium citrate available over-the- counter at the pharmacy. Return to the ED for any new or worsening symptoms. - Billing Disposition and Condition Condition: STABLE Disposition: Home
[2019-10-15 01:47] LABS: Urine Appearance Clear; Urine Bilirubin Negative (Negative); Urine Blood Negative (Negative); Urine Color Straw; Urine Glucose Negative (Negative); Urine Ketones Negative (Negative); Urine Nitrite Negative (Negative); Urine Protein Negative (Negative); Urine Specific Gravity 1.002 (1.010-1.030); Urine Urobilinogen Negative (Negative)
[2019-10-15 01:59] VITALS: BP 142/90
== END 2019-10-15 01:58 | disposition home or self-care (01) ==
LOC: ED 22:26
DX: K59.00 Constipation, unspecified (principal); R11.0 Nausea; I10 Essential (primary) hypertension; Z87.891 Personal history of nicotine dependence; Z86.14 Personal history of Methicillin resistant Staphylococcus aureus infection; Z79.899 Other long term (current) drug therapy; Z88.2 Allergy status to sulfonamides; Z86.69 Personal history of other diseases of the nervous system and sense organs
CPT/HCPCS: 81003; 99282